=== PATIENT | male | born 1980 | race Caucasian/White ===

== ENCOUNTER 2020-05-11 08:21 | Day surgery (SDC) | payer MEDICAID ==
[~2020-05-11] VITALS: Ht 177.8 cm; Wt 86.2 kg
[~2020-05-11 08:21] MED LIST: ACETAMINOPHEN325 MG
[2020-05-11 10:02] VITALS: BP 121/73; Ht 177.8 cm; Wt 86.2 kg
--- NOTE | 2020-05-11 14:52 | NUR ---
1437-REC'D FROM RR. DROWSY, EASILY AROUSED WITH VERBAL STIMULI. DRESSING TO RIGHT KNEE. ICE PACK IN PLACE. PALPABLE STRONG REGULAR PEDAL PULSE. CAP REFILL WNL. TOES WARM TO TOUCH. ABLE TO WIGGLE DIGITS. VSS. NO DISTRESS. SPOUSE AT BEDSIDE. TOLERATING ICE WATER. REVIEWED DISCHARGE CRITERIA. CL IN EASY REACH.
--- NOTE | 2020-05-11 15:46 | NUR ---
1545 IV REMOVED PRESSURE HELD AND DRESSING APPLIED.
--- NOTE | 2020-05-11 16:51 | NUR ---
1630 IV REMOVED AND PRESSURE HELD.INSTRUCTIONS GIVEN. PT DENIES PAIN OR NAUSEA.
--- NOTE | 2020-05-13 14:39 | OP ---
PATIENT NAME: RUDOLPH HERNANDEZ V MEDICAL RECORD: [id number] :80 LOCATION:[facility] ADMISSION DATE: SURGEON: BO CARDENAS MD DATE OF OPERATION: 05/11/2020 PREOPERATIVE DIAGNOSES: 1. Right knee pain. 2. Bucket handle medial meniscus tear. 3. Anterior cruciate ligament tear. POSTOPERATIVE DIAGNOSES: 1. Right knee pain. 2. Bucket handle medial meniscus tear. 3. Anterior cruciate ligament tear. PROCEDURE PERFORMED: 1. Right knee arthroscopy with partial medial meniscectomy. 2. Right ACL reconstruction with allograft. INDICATIONS FOR THE PROCEDURE: Mr. Hernandez is a 40-year-old male who injured his right knee approximately 1 week ago. He complained of pain and swelling following the incident, was seen at his physician's office where x-ray and MRI were performed, which showed evidence of ACL and meniscus tear. I talked with him about options for conservative versus surgical treatment. He has elected to proceed with the surgery for knee arthroscopy and ACL reconstruction. Risks, benefits and alternatives of surgery were discussed with the patient. Consent was obtained. DESCRIPTION OF PROCEDURE: The patient was met in the holding area where his identity and confirmation of procedure was performed. The right lower extremity was marked. He was taken to the operating room where he was placed supine on the operating table and anesthesia was administered. Tourniquet was applied to the right thigh and right leg was positioned in the leg green. Right lower extremity was then prepped and draped in a sterile fashion. The patient received preoperative antibiotics and timeout was performed before initiating the case. On initiation of the case, the leg was exsanguinated and the tourniquet was raised. Total tourniquet time was approximately 75 minutes. We began with the diagnostic knee arthroscopy. A superior medial portal was placed and the knee was filled with fluid. We then placed our anterior lateral portal, inserted the camera and placed our anterior medial portal under direct visualization. Diagnostic knee arthroscopy was performed. The patellofemoral joint was in good condition. The medial and lateral gutters were clear. Medial compartment showed a large flipped bucket-handle tear of the medial meniscus. The tear was able to be reduced with a probe. The cartilage was in good condition. The ACL was torn from the lateral wall. The lateral compartment was okay without any pathology. We then moved back to the medial compartment. Using a biter and shaver, I performed a partial medial meniscectomy. Before and after images were obtained. We then moved to our ACL and a shaver was used to debride the remnant stump of the ACL. We also smoothed and debrided the lateral wall using cautery and the shaver. We then began with the tunnel placement for our ACL. The allograft tendon was prepared on the back table and marked appropriately. Our drill guide for the femoral tunnel was placed. The knee was held in flexion and our flexible guide pin was advanced out through the lateral cortex and skin. A small incision was made at the guide pin and the tunnel measured 38 mm. We then overdrilled to 25 with a size 9 flexible reamer and OPERATIVE REPORT [id number] RUDOLPH HERNANDEZ V then drilled out through the far cortex with our reamer for the button. Bony debris was removed with the shaver throughout this process. Our passing suture was then placed and secured. We then moved to the tibia. Our entrance for the tibial tunnel was marked. An incision was made over the anteromedial tibia, incising through the skin and subcutaneous tissues using cautery to dissect down to the bone itself. The tibial guide was then placed with the knee held in flexion our guide pin was advanced. It was then overdrilled with the size 9 reamer and a curette was used to protect the guide pin in the knee. The plug was then placed. Once the tunnel was drilled and any more tissue within the knee was debrided with the shaver. The passing suture was then retrieved through the tibial tunnel and the ends of the graft suture were placed through the passing suture and pulled out through the lateral cortex of the femur. Our suture strands were then advanced and the button was passed through the knee and out through the lateral cortex. It was flipped at the lateral cortex and counterpressure was applied. The tensioning strands were then retrieved through the anterior medial portal and the ACL was pulled securely into place in the femoral tunnel. With the ACL secured at the femoral tunnel, it was then taken through a range of motion for tensioning as pressure was applied to the ends of the graft strands. The knee was then taken into approximately 30 degrees of flexion and posterior drawer was applied as we secured our tibial fixation. A guidewire was placed and our tibial interference screw was advanced down over the wire to have a good fit in the tibia. The ends of the graft were then excised. The camera was reinserted into the knee, showed good alignment positioning of our ACL. Suture ends were again tensioned from our tensioning suture and these were then cut. The sutures were removed from the lateral cortex as well. Fluid was drained from the knee and this completed our procedure. The tibial wound was closed with Vicryl suture and a running Monocryl. Portal sites were closed with nylon suture. Sterile dressing was placed. The patient was placed into a knee immobilizer locked in extension. He was turned back over to anesthesia. He is awakened, extubated, and taken to recovery room in stable condition. POSTOPERATIVE PLAN: The patient is going to return home with his family today. He may be as weightbearing as tolerated on the right lower extremity. He needs to keep the knee brace locked in extension with ambulation activities at least for the next week or two. He is to start physical therapy on Saturday. We will see him back in clinic in 2 weeks to evaluate his progress. COMPLICATIONS: None. ANESTHESIA: General with peripheral nerve block. ESTIMATED BLOOD LOSS: 20 mL. GEOSPATIAL SCIENTIST: first senait Renee. He assisted with drilling throughout the case as well as closing of the surgical wounds. TRANSINT:[id number] Voice Confirmation ID: [id number] DOCUMENT ID: [id number] OPERATIVE REPORT [id number] RUDOLPH HERNANDEZ BRENT M MD at 1439 CC: [id number] DICTATION DATE: 05/11/20 1356 [employer] ENGINE FITTER: 05/11/20 1519 [facility] 05/11/[address] [id number]
== END 2020-05-11 16:45 | disposition home or self-care (01) ==
LOC: D.OPS 08:21
PROVIDERS: ATTEND Orthopaedic Surgery
DX: M25.561 Pain in right knee (principal); S83.211A Bucket-handle tear of medial meniscus, current injury, right knee, initial encounter; S83.511A Sprain of anterior cruciate ligament of right knee, initial encounter; X58.XXXA Exposure to other specified factors, initial encounter